=== PATIENT | female | born 1995 | race Caucasian/White ===

== ENCOUNTER 2024-02-03 06:44 | Emergency (ER) | payer BC ==
[~2024-02-03] VITALS: Ht 167.6 cm; Wt 72.6 kg
[2024-02-03] MEDS ORDERED: NAPR-1009 PO (07:09)
[2024-02-03 07:26] VITALS: BP 93/61; TEMP 97.9; O2SAT 98
== END 2024-02-03 07:26 | disposition home or self-care (01) ==
LOC: ER 06:47
DX: S13.8XXA Sprain of joints and ligaments of other parts of neck, initial encounter (principal); Z79.899 Other long term (current) drug therapy; X58.XXXA Exposure to other specified factors, initial encounter; Y93.89 Activity, other specified; Y92.89 Other specified places as the place of occurrence of the external cause; Y99.8 Other external cause status